=== PATIENT | male | born 1950 | race Caucasian/White ===

== ENCOUNTER → 2016-06-06 | Outpatient (CLI) | payer MEDICARE, OTHER ==
[~2016-06-06] MED LIST: AMBIEN CR 12.12.5 MG PO; ASPI325T6 PO; CO Q-1010 MG PO; FERROUS SU325 MG/TAB PO; FOLIC ACID 40400 MCG PO; MILK OF MA400 MG/52 PO; NORCO 325 MG-7.1 TAB PO; OSTEO-BI-FLEX 21 TAB PO; PRILOSEC10 MG PO; PRINIVIL10 MG PO; RESTASIS0.05%; ROXICODONE 55 MG/TAB PO; SENOKOT8.6 MG PO; TYLENOL 500MG500 MG PO; VALIUM 10MG10 MG/TAB PO; VITAMIN C500 MG PO; VITAMIN D 400400 IU PO; ZANAFLEX CAPSULE2 MG; ZOCOR 20MG20 MG PO; [UNRECOGNIZED DRUG - OTHER]
== END ==
LOC: COL.RAD 09:19
DX: N18.9 Chronic kidney disease, unspecified (principal)

== ENCOUNTER 2016-09-20 09:27 | Inpatient (IN) | payer MEDICARE, OTHER ==
[~2016-09-20] VITALS: Ht 175.3 cm; Wt 108.4 kg
[2016-11-21] VITALS (13 sets, daily range): BP systolic 116–153; BP diastolic 63–77; PULSE 79–98; TEMP 97.8–98.5
[2016-11-21] MEDS ORDERED: AMBIEN 10MG10 MG PO (07:59)
[2016-11-22 04:24] VITALS: BP 129/66; PULSE 78; TEMP 97.6
[2016-11-22 07:27] LABS: HEMATOCRIT 37.5 % (42.0-52.0); HEMOGLOBIN 12.9 g/dl (13.5-18.0)
[2016-11-22 07:57] VITALS: BP 130/71; PULSE 87; TEMP 97
[2016-11-22 12:02] VITALS: BP 149/64; PULSE 93; TEMP 97.9
[2016-11-22 16:20] VITALS: BP 149/70; PULSE 79; TEMP 97.8
[2016-11-22 20:06] VITALS: BP 145/69; PULSE 88; TEMP 98.2
[2016-11-22 23:46] VITALS: BP 140/63; PULSE 70; TEMP 98.1
[2016-11-23 03:38] VITALS: BP 124/77; PULSE 87; TEMP 98.1
[2016-11-23 07:15] LABS: HEMATOCRIT 41.9 % (42.0-52.0)
[2016-11-23 07:50] VITALS: BP 115/65; PULSE 105
[2016-11-23 07:59] VITALS: BP 149/85; PULSE 88; TEMP 97.9
[2016-11-23 12:29] VITALS: BP 124/74; PULSE 82; TEMP 98.4
== END 2016-11-23 14:10 | disposition home or self-care (01) | DRG 470 ==
LOC: JCC 11-05 13:30
PROVIDERS: Orthopaedic Surgery
PROC: 0SRC0J9 Replacement of Right Knee Joint with Synthetic Substitute, Cemented, Open Approach (ICD-10-PCS; principal; 2016-11-21 07:30)
DX: M17.11 Unilateral primary osteoarthritis, right knee (principal); Z87.891 Personal history of nicotine dependence
CPT/HCPCS: A4315; A9284; C1713; C1776; J0690; J1100; J2250; J2704; J3010; J7120

== ENCOUNTER → 2016-09-21 | Outpatient (CLI) | payer MEDICARE, OTHER | LOC: COL.RAD 07:51 | DX: E04.1 Nontoxic single thyroid nodule (principal); M47.812 Spondylosis without myelopathy or radiculopathy, cervical region; R59.0 Localized enlarged lymph nodes | CPT/HCPCS: Q9967 ==

== ENCOUNTER → 2016-10-25 | Outpatient (CLI) | payer MEDICARE, OTHER ==
[2016-10-25 13:01] LABS: HIV 1/2 Antibodies Non-Reactive; HIV-1p24 Antigen Non-Reactive
== END ==
LOC: COL.LAB 11:48
PROVIDERS: Orthopaedic Surgery
DX: Z01.812 Encounter for preprocedural laboratory examination (principal)

== ENCOUNTER 2016-11-09 06:25 | Day surgery (SDC) | payer MEDICARE, OTHER ==
[2016-11-09] VITALS (9 sets, daily range): BP systolic 109–136; BP diastolic 64–79; PULSE 66–84; TEMP 98.1–98.3
[~2016-11-09] VITALS: Ht 175.3 cm; Wt 108.3 kg
[2016-11-09 07:20] LABS: HEMATOCRIT 44.5 % (42.0-52.0); HEMOGLOBIN 15.2 g/dl (13.5-18.0); MEAN CELL VOLUME 90 fl (80.0-100.0); MEAN CORPUSCULAR HEMOGLOBIN 31 pg (27.0-31.0); MEAN CORPUSCULAR HGB CONC 34 g/dl (33.0-37.0); MEAN PLATELET VOLUME 9.6 fl (7.4-10.4); PLATELET COUNT 152 K/mm3 (130-400); RED BLOOD COUNT 4.93 M/mm3 (4.20-5.60); REDCELL DISTRIBUTION WIDTH-CV 11.9 % (11.5-14.5); WHITE BLOOD COUNT 6.7 K/mm3 (4.8-10.8)
[2016-11-09 07:28] LABS: PROTHROMBIN TIME 11.2 SECONDS (9.7-12.8)
[2016-11-09 07:30] LABS: CALCIUM 9.2 mg/dL (8.4-10.2); CREATININE, serum 1.48 mg/dL (0.66-1.25); POTASSIUM 4.7 mmol/L (3.4-5.0)
== END 2016-11-09 12:28 | disposition home or self-care (01) ==
LOC: COL.CAR 06:25
PROVIDERS: Internal Medicine Interventional Cardiology
DX: R07.9 Chest pain, unspecified (principal); I20.9 Angina pectoris, unspecified; R94.39 Abnormal result of other cardiovascular function study; I10 Essential (primary) hypertension; Z96.641 Presence of right artificial hip joint; Z83.3 Family history of diabetes mellitus; Z82.3 Family history of stroke; Z82.49 Family history of ischemic heart disease and other diseases of the circulatory system
CPT/HCPCS: C1760; C1894; J2250; J2405; J3010; Q9967

== ENCOUNTER 2016-11-19 12:05 | Outpatient (RCR) | payer MEDICARE, OTHER ==
[2016-11-21] MEDS ORDERED: AMBIEN 10MG10 MG PO (07:59)
== END 2016-11-22 16:05 ==
LOC: WSPT 12:05
DX: Z01.818 Encounter for other preprocedural examination (principal); M17.11 Unilateral primary osteoarthritis, right knee
CPT/HCPCS: G8978-GP; G8979-GP

== ENCOUNTER 2017-01-25 15:15 | Outpatient (RCR) | payer MEDICARE, OTHER ==
[~2017-01-25 15:15] MED LIST changes: +AMBIEN 10MG10 MG PO
== END 2017-02-06 14:38 | disposition home or self-care (01) ==
LOC: WSPT 15:15
DX: Z47.89 Encounter for other orthopedic aftercare (principal); Z96.651 Presence of right artificial knee joint
CPT/HCPCS: G8978-GP; G8979-GP

== ENCOUNTER 2017-07-26 13:15 | Outpatient (RCR) | payer MEDICARE, OTHER | END 2017-08-08 08:21 | disposition home or self-care (01) | LOC: WSPT 13:15 | DX: M54.5 Low back pain (principal); R53.1 Weakness; Z96.651 Presence of right artificial knee joint | CPT/HCPCS: G8978-GP; G8979-GP ==

== ENCOUNTER 2017-10-23 13:45 | Outpatient (RCR) | payer MEDICARE, OTHER | END 2017-12-08 | disposition home or self-care (01) | LOC: WSOT | DX: M79.642 Pain in left hand (principal); M79.641 Pain in right hand; Z96.651 Presence of right artificial knee joint; Z96.643 Presence of artificial hip joint, bilateral | CPT/HCPCS: G8987-GO; G8988-GO ==

== ENCOUNTER 2017-10-23 14:30 | Outpatient (RCR) | payer MEDICARE, OTHER | END 2017-12-15 | disposition home or self-care (01) | LOC: WSPT | DX: M54.2 Cervicalgia (principal); M79.602 Pain in left arm; M54.5 Low back pain; Z79.899 Other long term (current) drug therapy | CPT/HCPCS: G8978-GP; G8979-GP ==

== ENCOUNTER 2018-07-25 12:45 | Outpatient (RCR) | payer MEDICARE, OTHER | END 2018-07-25 13:40 | disposition home or self-care (01) | LOC: WSC 12:45 | DX: M25.511 Pain in right shoulder (principal) ==

== ENCOUNTER 2020-09-08 14:15 | Outpatient (RCR) | payer MEDICARE, OTHER | END 2020-10-07 10:16 | disposition home or self-care (01) | LOC: WSPT 14:15 | DX: E11.9 Type 2 diabetes mellitus without complications (principal); F32.9 Major depressive disorder, single episode, unspecified; M81.0 Age-related osteoporosis without current pathological fracture ==

== ENCOUNTER 2021-09-10 17:27 | Observation (INO) | payer MEDICARE, OTHER ==
[~2021-09-10] VITALS: Ht 172.7 cm; Wt 112.0 kg
[2021-09-10 18:07] LABS: BASO % 0.3 % (0.0-2.0); EOS % 0.2 % (0.0-4.0); GRAN # 7.5 K/mm3 (1.4-6.5); GRAN % 82.4 % (42.2-75.2); HEMATOCRIT 46.8 % (42.0-52.0); HEMOGLOBIN 15.9 g/dl (13.5-18.0); LYMPH # 0.5 K/mm3 (1.2-3.4); LYMPH % 5.9 % (20.0-51.0); MEAN CELL VOLUME 91 fl (80.0-100.0); MEAN CORPUSCULAR HEMOGLOBIN 31 pg (27-31); MEAN CORPUSCULAR HGB CONC 34 g/dl (33.0-37.0); MEAN PLATELET VOLUME 9.5 fl (7.4-10.4); MONO % 10.9 % (1.7-9.3); PLATELET COUNT 141 K/mm3 (130-400); RED BLOOD COUNT 5.13 M/mm3 (4.20-5.60)
[2021-09-10 18:25] LABS: ALANINE AMINOTRANSFERASE 21 U/L (0-55); ALBUMIN 3.7 gm/dL (3.4-4.8); ALKALINE PHOSPHATASE 81 U/L (40-150); ANION GAP 15 mmol/L (7-16); AST,SGOT 16 U/L (5-34); BILIRUBIN,TOTAL 0.8 mg/dL (0.2-1.2); BLOOD UREA NITROGEN 17 mg/dL (8-26); C-REACTIVE PROTEIN 6.92 mg/dL (0.00-0.50); CALCIUM 9.4 mg/dL (8.4-10.2); CARBON DIOXIDE 19 mmol/L (23-31); CHLORIDE 104 mmol/L (98-107); CREATININE, serum 1.65 mg/dL (0.72-1.25); GLUCOSE 161 mg/dL (70-99); POTASSIUM 4.5 mmol/L (3.5-4.5); SODIUM 138 mmol/L (136-145); TOTAL PROTEIN 7.3 gm/dL (6.2-8.1)
[2021-09-10 18:32] LABS: TROPONIN-I < 0.010 ng/mL (0.00-0.033)
[2021-09-10 20:36] LABS: INR 1.2 (0.8-3.0)
[2021-09-10 20:48] LABS: MAGNESIUM 1.8 mg/dL (1.6-2.6)
[2021-09-10 22:52] VITALS: BP 137/72; PULSE 105; TEMP 99.4
--- NOTE | 2021-09-10 23:00 | NUR ---
Admitted to medical floor, Covid unit, alert/oriented, VSS, Tele on, IV fluids of NS at 125cc/hr, has abrasion to forehead, states has a headache 5/-- Melvina SHARP is coming to write orders now, on RA, states he is just overall very weak/tired,
[2021-09-10] MEDS ORDERED: GLUCOPHAGE500 MG/TAB (23:04)
[2021-09-10] MEDS ORDERED: VALIUM 10MG10 MG/TAB PO ×2 (23:05→23:59)
[2021-09-10] MEDS ORDERED: ZETIA 10MG TAB10 MG PO (23:06)
[2021-09-10] MEDS ORDERED: REPATHA SU140 MG/1 M SQ (23:58)
[2021-09-10] MEDS ORDERED: GLUCOPHAGE XR500 M1 PO (23:59)
[2021-09-11] MEDS ORDERED: ZANAFLEX CAPSULE4 MG PO
[2021-09-11] MEDS ORDERED: INDERAL 20MG20 MG PO (00:01)
[2021-09-11] MEDS ORDERED: PRINIVIL20 MG PO (00:01)
[2021-09-11] MEDS ORDERED: VITAMIN D31000 IU PO (00:15)
[2021-09-11 00:19] VITALS: BP 153/64; PULSE 102; TEMP 98.2
[2021-09-11 03:56] VITALS: BP 145/58; PULSE 107; TEMP 101.3
[2021-09-11 05:03] LABS: COLLECTION METHOD CLEAN CATCH
[2021-09-11 05:13] LABS: MUCOUS Present (NOT PRESENT); PH 5 (5-8); SQUAMOUS EPITHELIAL 0-2 /hpf (0-10); URINE APPEARANCE Hazy (CLEAR/HAZY); URINE BACTERIA None Seen /hpf (NONE SEEN); URINE BLOOD Negative (NEGATIVE); URINE CALCIUM OXALATE CRYSTAL Present (NOT PRESENT); URINE COLOR Yellow (YELLOW); URINE GLUCOSE Negative (NEGATIVE); URINE KETONE 1+ (NEGATIVE); URINE NITRATE Negative (NEGATIVE); URINE PROTEIN(semi-quant) Negative (NEGATIVE); URINE RBC 0-2 /hpf (0-2); URINE UROBILINOGEN Negative (NEGATIVE)
--- NOTE | 2021-09-11 06:00 | NUR ---
Did have fever 101.3, Tylenol given, he did get some sleep last night- states he is feeling a little better this morning, waiting to order some breakfast-
[2021-09-11 06:59] LABS: BASO % 0.3 % (0.0-2.0); GRAN # 4.9 K/mm3 (1.4-6.5); GRAN % 67.1 % (42.2-75.2); HEMATOCRIT 41.9 % (42.0-52.0); HEMOGLOBIN 14.2 g/dl (13.5-18.0); LYMPH # 0.9 K/mm3 (1.2-3.4); LYMPH % 12.4 % (20.0-51.0); MEAN CELL VOLUME 92 fl (80.0-100.0); MEAN CORPUSCULAR HEMOGLOBIN 31 pg (27-31); MEAN CORPUSCULAR HGB CONC 34 g/dl (33.0-37.0); MEAN PLATELET VOLUME 9.8 fl (7.4-10.4); MONO # 1.5 K/mm3 (0.1-0.6); MONO % 19.8 % (1.7-9.3); PLATELET COUNT 124 K/mm3 (130-400); RED BLOOD COUNT 4.54 M/mm3 (4.20-5.60); REDCELL DISTRIBUTION WIDTH-CV 12.1 % (11.5-14.5)
[2021-09-11 07:21] LABS: ALBUMIN 3.1 gm/dL (3.4-4.8); BILIRUBIN,TOTAL 0.5 mg/dL (0.2-1.2); CALCIUM 8.3 mg/dL (8.4-10.2); CREATININE, serum 1.34 mg/dL (0.72-1.25); POTASSIUM 4.1 mmol/L (3.5-4.5); TOTAL PROTEIN 6.1 gm/dL (6.2-8.1)
[2021-09-11 08:13] VITALS: BP 139/68; PULSE 98; TEMP 98.4
--- NOTE | 2021-09-11 09:18 | NUR ---
The patient is COVID positive. RAFAEL contacted the patient's , Joann (ph#[phone]), to discuss discharge plan. The patient lives with his and their son, Celos. They live in a split level home. She reports that the patient is independent with ADLs, but it has been tough for the patient to move. They has multiple canes, a walker, and wheelchair available if needed. The patient's PCP is Dr. Alexia Bean and he receives his medications from [facility]. The patient does not have a DPOA-HC in EMR, but Edith states that the patient does have one completed and that it designates her. Joann reports that the plan is for the patient to return back home with her upon discharge. RAFAEL discussed home health services. Joann states that she does not think the patient will agree to home health. She states that she works at [facility] [employer], so if the patient does agree to home health, she can get this set up. *Discharge plan: home with *
[2021-09-11 11:43] VITALS: BP 135/65; PULSE 83; TEMP 98.6
--- NOTE | 2021-09-11 12:20 | NUR ---
Called to room 302 by ESTEBAN Tellez stating patient was unresponsive. Patient is cyanotic with no respiratory effort/no apical pulse verified by this nurse and Geoff. Patient is a DNR. Notified Dr Hatfield. Tele reporting sinus brett with heart rate in the low 30s/40s.
--- NOTE | 2021-09-11 12:22 | NUR ---
Dr Hatfield at bedside. New verbal orders received and placed.
--- NOTE | 2021-09-11 12:25 | NUR ---
Respiratory at bedside for EKG.
--- NOTE | 2021-09-11 12:59 | NUR ---
Called to the floor at 1235. Patient non-responsive with EKG showing PEA. Dr. Hatfield with staff at bedside. Patient has no pulse and/or respirations. Time of called at 1238. @ 1241 left message with patient's . returned call and made aware of patient's . Edith (patient's ) stated that his home would be [facility]. @ 1244 call placed to [facility]. Due to Covid-19 dx patient will not be a candidate for donation. They stated may release body to home. @ 1253 home made aware of patient's and that he is ready to be picked up. @ [address] Bean office to made them aware of patients .
--- NOTE | 2021-09-11 15:01 | NUR ---
WENT TO [facility] TO GIVE MEDS @ 1208. PATIENT WAS AWAKE AND TALKING AT THAT TIME. HE INFORMED ME THAT HIS HEAD HURT, POINTING WHERE THE BRUISE WAS FROM HIS FALL. HE ASKED IF HE COULD HAVE THE TRAMADOL PILL AGAIN. I LEFT THE ROOM. UPON ENTERING AT 1215, TEE WAS UNRESPONSIVE, LIPS BLUE. NO HEART SOUNDS, UNABLE TO FEEL PULSE. CHARGE CALLED AT 1215 THEN DOCTOR CALLED. I CALLED TELE AND THEY STATED PATIENTS HR SHOWED SINUS ANNA MARIE. PHYSICIAN CAME INTO THE ROOM AND ORDERED A 12 LEAD EKG THEN LEFT. 12 LEAD EKG SHOWED 34 BPM IN SINUS ANNA MARIE. PEA DETERMINED. TIME OF CALLED AT 1238. POSTPARTUM NURSE INFORMED PATIENTS FAMILY.
--- NOTE | 2021-09-12 13:41 | NUR ---
Patient belongings found; call made to patient's , Edith. She states that since she and all her family have covid, a friend, Dee Dee Matthews, will pick it up at the front line supervisor today. Belongings taken to front line supervisor with note about who will pick it up.
== END 2021-09-11 12:38 | disposition expired ==
LOC: COL.ER 17:27 → MEDICAL 19:46
PROVIDERS: Nurse Practitioner; Nurse Practitioner Family; ADMIT Internal Medicine
DX: U07.1 COVID-19 (principal); E87.2 Acidosis; I12.9 Hypertensive chronic kidney disease with stage 1 through stage 4 chronic kidney disease, or unspecified chronic kidney disease; N18.9 Chronic kidney disease, unspecified; E78.5 Hyperlipidemia, unspecified; Z87.891 Personal history of nicotine dependence
CPT/HCPCS: G0378; J0696; J1644; J1650; J7030; J7120